=== PATIENT | male | born 1955 | race Caucasian/White ===

== ENCOUNTER 2018-01-01 12:42 | Day surgery (SDC) | payer OTHER ==
[2018-01-01] MEDS ORDERED: MIDAZOLAM 1 MG/ML 2 ML INJ (14:00)
[2018-01-01] MEDS ORDERED: PROPOFOL 20 ML (14:00)
[2018-01-01] MEDS ORDERED: FENTAnyl 50 MCG/ML VIAL (14:00)
== END 2018-01-01 14:52 | disposition home or self-care (01) ==
LOC: SDS 12:42 → GIL 14:52
DX: R19.4 Change in bowel habit (principal); K57.90 Diverticulosis of intestine, part unspecified, without perforation or abscess without bleeding; K64.8 Other hemorrhoids; Z86.010 Personal history of colon polyps; E11.9 Type 2 diabetes mellitus without complications
CPT/HCPCS: 45378; 82962